=== PATIENT | male | born 1940 | race Caucasian/White ===

== ENCOUNTER → 2018-02-06 07:59 | Outpatient (CLI) | payer MEDICARE, SELFPAY ==
[2018-02-06 09:23] LABS: Prostate Specific Antigen 0.486 ng/mL (0.10-4.00)
== END ==
PROVIDERS: Visit Provider Radiology Radiation Oncology
DX: C61 Malignant neoplasm of prostate (principal)
CPT/HCPCS: 36415; 84153

== ENCOUNTER → 2018-03-23 14:13 | Outpatient (CLI) | payer MEDICARE, SELFPAY ==
[2018-03-23 15:04] LABS: Add Manual Diff / Slide Review NO; Basophils Percent Auto 0.4 % (0-2); Eosinophils Percent Auto 0.6 % (2-4); Hematocrit 46.3 % (41-53); Hemoglobin 15.9 g/dL (13.5-17.5); Lymphocytes Percent Auto 13.3 % (25-40); Mean Corpuscular HGB Conc 34.3 % (30-36); Mean Corpuscular Volume 90.2 fL (80-100); Monocytes Percent Auto 7.5 % (3-14); Neutrophils Absolute Auto 9600 /uL (3000-5900); Neutrophils Percent Auto 78.2 % (50-75); Platelet Count 275 X10^3/uL (150-400); Red Blood Cell Count 5.14 X10^6/uL (4.5-5.9); Red Cell Distribution Width 13.8 % (11.6-14.8); White Blood Cell Count 12.2 X10^3/uL (4.5-11.0)
[2018-03-23 15:25] LABS: Alanine Aminotransferase 23 IU/L (21-72); Albumin 4.4 g/dL (3.5-5.0); Albumin Globulin Ratio 1.5 (1.0-2.8); Alkaline Phosphatase 62 U/L (38-126); Aspartate Aminotransferase 24 IU/L (17-59); BUN Creatinine Ratio 21.3 (6-22); Bilirubin Total 0.8 mg/dL (0.2-1.3); Blood Urea Nitrogen 17 mg/dL (9-20); Calcium 9.2 mg/dL (8.4-10.2); Carbon Dioxide 28 mmol/L (22-32); Chloride 103 mmol/L (98-107); Estimated Glomerular Filt Rate > 60.0 mL/min (>60); Glucose 124 mg/dL (80-110); HEMOLYSIS < 15 (0-50); Magnesium 2.2 mg/dL (1.6-2.3); Potassium 4.1 mmol/L (3.4-5.1); Sodium 141 mmol/L (137-145); Total Protein 7.4 g/dL (6.3-8.2)
[2018-03-23 16:16] LABS: Thyroid Stimulating Hormone 1.89 uIU/mL (0.47-4.68)
== END ==
PROVIDERS: Visit Provider Nurse Practitioner Family
DX: I48.91 Unspecified atrial fibrillation (principal); I44.30 Unspecified atrioventricular block; I10 Essential (primary) hypertension
CPT/HCPCS: 36415; 80053; 83735; 84443; 85025

== ENCOUNTER → 2018-05-18 07:36 | Outpatient (CLI) | payer MEDICARE, SELFPAY ==
[2018-05-18 08:18] LABS: Appearance Urine UA CLEAR; Bilirubin Urine UA NEGATIVE (NEGATIVE); Color Urine UA YELLOW; Glucose Urine UA NEGATIVE (Normal); Ketones Urine UA NEGATIVE (NEGATIVE); Leukocyte Esterase Urine UA NEGATIVE (NEGATIVE); Nitrite Urine UA Negative (Negative); Occult Blood Urine UA NEGATIVE (Negative); Protein Urine UA NEGATIVE (Negative); Urobilinogen Urine UA 0.2 E.U./dL (0.2); pH Urine UA 7.5 (4.5-8.0)
[2018-05-18 08:24] LABS: Add Manual Diff / Slide Review NO; Basophils Percent Auto 0.2 % (0-2); Eosinophils Percent Auto 0.9 % (2-4); Hematocrit 46.8 % (41-53); Hemoglobin 15.9 g/dL (13.5-17.5); Lymphocytes Percent Auto 11.6 % (25-40); Mean Corpuscular HGB Conc 33.9 % (30-36); Mean Corpuscular Hemoglobin 30.9 PG (26-34); Mean Corpuscular Volume 91.2 fL (80-100); Monocytes Percent Auto 8.2 % (3-14); Neutrophils Absolute Auto 8100 /uL (3000-5900); Neutrophils Percent Auto 79.1 % (50-75); Platelet Count 266 X10^3/uL (150-400); Red Blood Cell Count 5.14 X10^6/uL (4.5-5.9); Red Cell Distribution Width 13.4 % (11.6-14.8); White Blood Cell Count 10.2 X10^3/uL (4.5-11.0)
[2018-05-18 09:10] LABS: Hemoglobin A1C% w Est Avg Glu 6.4 % (4.0-6.0)
[2018-05-18 09:25] LABS: Alanine Aminotransferase 23 IU/L (21-72); Albumin 4.4 g/dL (3.5-5.0); Albumin Globulin Ratio 1.4 (1.0-2.8); Alkaline Phosphatase 64 U/L (38-126); Aspartate Aminotransferase 23 IU/L (17-59); BUN Creatinine Ratio 28.6 (6-22); Bilirubin Total 0.7 mg/dL (0.2-1.3); Blood Urea Nitrogen 20 mg/dL (9-20); Calcium 8.9 mg/dL (8.4-10.2); Carbon Dioxide 28 mmol/L (22-32); Chloride 105 mmol/L (98-107); Cholesterol 176 mg/dL (140-199); Estimated Glomerular Filt Rate > 60.0 mL/min (>60); Globulin 3.1 g/dL (1.7-4.1); Glucose 126 mg/dL (80-110); HDL Cholesterol 40 mg/dL (40-60); HEMOLYSIS < 15 (0-50); LDL Cholesterol Calculated 118 mg/dL (<100); Potassium 3.8 mmol/L (3.4-5.1); Sodium 144 mmol/L (137-145); Total Protein 7.5 g/dL (6.3-8.2); Triglycerides 90 mg/dL (35-150)
[2018-05-18 09:56] LABS: Thyroid Stimulating Hormone 2.03 uIU/mL (0.47-4.68)
== END ==
PROVIDERS: Visit Provider Family Medicine
DX: R73.9 Hyperglycemia, unspecified (principal); Z51.81 Encounter for therapeutic drug level monitoring; Z95.0 Presence of cardiac pacemaker
CPT/HCPCS: 36415; 80053; 80061; 81003; 83036; 84443; 85025

== ENCOUNTER → 2018-07-23 14:11 | Outpatient (CLI) | payer MEDICARE, SELFPAY ==
[2018-07-23 16:35] LABS: Prostate Specific Antigen 0.395 ng/mL (0.10-4.00)
[2018-07-23 19:32] LABS: Alanine Aminotransferase 21 IU/L (21-72); Albumin 4.5 g/dL (3.5-5.0); Albumin Globulin Ratio 1.5 (1.0-2.8); Alkaline Phosphatase 62 U/L (38-126); Aspartate Aminotransferase 27 IU/L (17-59); BUN Creatinine Ratio 18.8 (6-22); Bilirubin Total 0.6 mg/dL (0.2-1.3); Blood Urea Nitrogen 15 mg/dL (9-20); Calcium 9.2 mg/dL (8.4-10.2); Carbon Dioxide 21 mmol/L (22-32); Chloride 106 mmol/L (98-107); Estimated Glomerular Filt Rate > 60.0 mL/min (>60); Glucose 184 mg/dL (80-110); HEMOLYSIS 29 (0-50); Potassium 4.3 mmol/L (3.4-5.1); Sodium 141 mmol/L (137-145); Total Protein 7.5 g/dL (6.3-8.2)
== END ==
PROVIDERS: Family Provider Family Medicine; Visit Provider Radiology Radiation Oncology
DX: Z85.46 Personal history of malignant neoplasm of prostate (principal); Z51.81 Encounter for therapeutic drug level monitoring
CPT/HCPCS: 36415; 80053; 84153

== ENCOUNTER → 2018-08-03 08:10 | Outpatient (CLI) | payer MEDICARE, SELFPAY ==
[2018-08-03 09:11] LABS: Hemoglobin A1C% w Est Avg Glu 6.6 % (4.0-6.0)
== END ==
PROVIDERS: Visit Provider Family Medicine
DX: R73.09 Other abnormal glucose (principal)
CPT/HCPCS: 36415; 83036

== ENCOUNTER → 2018-09-24 12:24 | Outpatient (CLI) | payer MEDICARE, SELFPAY ==
[2018-09-24 13:43] LABS: Alanine Aminotransferase 29 IU/L (21-72); Albumin 4.3 g/dL (3.5-5.0); Albumin Globulin Ratio 1.5 (1.0-2.8); Alkaline Phosphatase 63 U/L (38-126); Aspartate Aminotransferase 24 IU/L (17-59); BUN Creatinine Ratio 31.7 (6-22); Bilirubin Total 0.6 mg/dL (0.2-1.3); Bilirubin Unconjugated 0.3 mg/dL (0.0-1.1); Blood Urea Nitrogen 19 mg/dL (9-20); Carbon Dioxide 26 mmol/L (22-32); Chloride 101 mmol/L (98-107); Estimated Glomerular Filt Rate > 60.0 mL/min (>60); Globulin 2.8 g/dL (1.7-4.1); Glucose 103 mg/dL (80-110); HEMOLYSIS 20 (0-50); Magnesium 2.2 mg/dL (1.6-2.3); Potassium 4.2 mmol/L (3.4-5.1); Sodium 138 mmol/L (137-145); Total Protein 7.1 g/dL (6.3-8.2)
== END ==
PROVIDERS: Family Provider Family Medicine; Visit Provider Nurse Practitioner Family
DX: I48.0 Paroxysmal atrial fibrillation (principal)
CPT/HCPCS: 36415; 80048; 80076; 83735

== ENCOUNTER → 2018-12-14 08:06 | Outpatient (CLI) | payer MEDICARE, SELFPAY ==
[2018-12-14 09:54] LABS: Prostate Specific Antigen 0.388 ng/mL (0.10-4.00)
== END ==
PROVIDERS: Family Provider Family Medicine; Visit Provider Radiology Radiation Oncology
DX: C61 Malignant neoplasm of prostate (principal)
CPT/HCPCS: 36415; 84153

== ENCOUNTER → 2019-04-25 07:57 | Outpatient (CLI) | payer MEDICARE, SELFPAY ==
[2019-04-25 08:48] LABS: Blood Urea Nitrogen 21 mg/dL (9-20); Calcium 9.4 mg/dL (8.4-10.2); Carbon Dioxide 24 mmol/L (22-32); Chloride 105 mmol/L (98-107); Estimated Glomerular Filt Rate > 60.0 mL/min (>60); Glucose 104 mg/dL (80-110); HEMOLYSIS < 15 (0-50); Potassium 4.1 mmol/L (3.4-5.1); Sodium 141 mmol/L (137-145)
== END ==
PROVIDERS: Visit Provider Nurse Practitioner Family
DX: I48.0 Paroxysmal atrial fibrillation (principal)
CPT/HCPCS: 36415; 80048

== ENCOUNTER → 2019-07-15 08:00 | Outpatient (CLI) | payer MEDICARE, SELFPAY ==
[2019-07-15 10:10] LABS: Prostate Specific Antigen 0.461 ng/mL (0.10-4.00)
== END ==
PROVIDERS: PCP Family Medicine; Visit Provider Radiology Radiation Oncology
DX: C61 Malignant neoplasm of prostate (principal)
CPT/HCPCS: 36415; 84153

== ENCOUNTER → 2019-12-26 07:49 | Outpatient (CLI) | payer MEDICARE, SELFPAY ==
[2019-12-26 09:13] LABS: BUN Creatinine Ratio 22.1 (6-22); Blood Urea Nitrogen 17 mg/dL (9-20); Calcium 9.1 mg/dL (8.4-10.2); Carbon Dioxide 26 mmol/L (22-32); Chloride 106 mmol/L (98-107); Estimated Glomerular Filt Rate > 60.0 mL/min (>60); Glucose 204 mg/dL (80-110); HEMOLYSIS < 15 (0-50); Magnesium 2.1 mg/dL (1.6-2.3); Potassium 4.2 mmol/L (3.4-5.1); Sodium 140 mmol/L (137-145)
== END ==
PROVIDERS: Referring Provider Nurse Practitioner Acute Care; Visit Provider Nurse Practitioner Acute Care
DX: Z51.81 Encounter for therapeutic drug level monitoring (principal); Z79.899 Other long term (current) drug therapy
CPT/HCPCS: 36415; 80048; 83735

== ENCOUNTER 2019-12-30 04:53 | Emergency (ER) | payer MEDICARE, SELFPAY ==
[2019-12-30 05:03] VITALS: BP 221/108; PULSE 76; RESP 18; TEMP 36.7; O2SAT 98; BMI 29.7
--- NOTE | 2019-12-30 05:15 | ED.GENADULT ---
HPI - General Adult General Chief complaint: Urogenital-Male Stated complaint: trouble urinating/history prostate cancer Time Seen by Provider: 12/30/19 05:15 Source: patient Mode of arrival: Ambulatory Limitations: no limitations History of Present Illness HPI narrative: 79-year-old gentleman with the history significant for prostate cancer status post radiation and Lupron with no evidence of recurrence, hypertension, hyperglycemia and atrial fibrillation on apixaban and post pacemaker presents with acute urinary retention. He notes for the last 24 hours he has had more and more difficulty in voiding and this evening he has been almost 5 hours trying to void. He is noticing pressure in his suprapubic area and a burning sensation at the tip of his penis. No discharge. Has not had previous issues with acute urinary retention. He describes no fevers, chills, myalgias, hematuria, flank pain, chest pain, dyspnea, orthopnea, lower extremity edema. Related Data Home Medications Medication Instructions Recorded Confirmed amlodipine 5 mg tablet 5 mg PO DAILY 05/15/18 05/15/18 apixaban 5 mg tablet 5 mg PO BID 05/15/18 05/15/18 lisinopril 20 mg tablet 20 mg PO DAILY 05/15/18 05/15/18 metoprolol tartrate 50 mg tablet 25 mg PO BID 05/15/18 05/15/18 omega-3 fatty acids 1,000 mg 1,000 mg PO DAILY 05/15/18 05/15/18 capsule sotalol 80 mg tablet 40 mg PO Q12H tab 05/15/18 05/15/18 Previous Rx's Medication Instructions Recorded adjuvant AS01B (PF)vial 1 of 2 0.5 ml IM ONCE #0.5 ml 05/15/18 diph,pertuss(acel),tet vac(PF) 0.5 ml IM ONCE #0.5 ml 05/15/18 pneumoc 13-divina conj-dip cr(PF) 0.5 0.5 ml IM ONCE #0.5 ml 05/15/18 mL IM syringe tamsulosin 0.4 mg PO DAILY #30 cap 12/30/19 Allergies Allergy/AdvReac Type Severity Reaction Status Date / Time No Known Drug Allergies Allergy Verified 05/15/18 09:51 Review of Systems Review of Systems Narrative: Pertinent positive and negative findings as per HPI Remainder of review of systems is otherwise unremarkable for Constitutional: Fevers, chills, weakness ENT: No sore throat, neck pain, ear pain Respiratory: Cough, wheeze, dyspnea GI: Nausea, vomiting, diarrhea, change in bowel habits, black or bloody stools MS: Muscle weakness, numbness, Skin: Rashes, Neuro: Syncope, dizziness, tingling Psych: Depression, anxiety, suicidal ideation Patient History Medical History Atrial fibrillation (Chronic) Cataract (Chronic 2016) Elevated PSA (Chronic ~2007) High-grade atrioventricular block (Resolved 02/15/17) Hypertension (Chronic) Pacemaker (Chronic 02/15/17) Prostate cancer (Chronic 2013) Surgical History Anesthesia (Resolved) History of permanent cardiac pacemaker placement (Resolved 02/15/17) Family History Father Cancer Brain tumor Mother No problems noted. Sister Dementia Social History (Updated 12/30/19 @ 05:46 by Rissa Angel MD) marital status: number of children: 6 lives independently: Yes education level: other Previous occupational history: Dentist Smoking Status: Never smoker alcohol intake: never Smoking Status: Never smoker alcohol intake frequency: 0-2 drinks per day Substance Use Type: does not use Exam Narrative Exam Narrative: General: Healthy appearing, in mild distress. Able to give a complete and coherent history. Well-nourished well-developed HEENT: Moist mucous membranes, normal sclera with reactive pupils, Neck: No JVD, supple Respiratory: Lungs are clear to auscultation, no wheezing no rales no rhonchi. Full and symmetrical air movement Cardiac: Regular rate and rhythm no murmurs no bruits Abdomen: Soft, umbilical hernia, mild supra pubic tenderness, good bowel tones, no flank pain Skin: Warm and dry, no rashes Neurologic: Grossly neurologically intact with no obvious asymmetries or abnormalities Extremities: No trauma, well perfused Psych: Cooperative, appropriate insight and affect Genitals: Normal uncircumcised penis, no penile discharge or urethral strictures. Bedside ultrasound suggests over 500 cc in the bladder Brock catheter placed by a nursing staff without difficulty. Draining nicely with yellow, nonbloody not purulence urine. Significant relief from pain once Brock has been placed Initial Vital Signs Initial Vital Signs: Vital Signs Temperature 98.0 F 12/30/19 05:03 Pulse Rate 76 12/30/19 05:03 Respiratory Rate 18 12/30/19 05:03 Blood Pressure 221/108 H 12/30/19 05:03 Pulse Oximetry 98 12/30/19 05:03 Course Orders Ordered: ED Orders 12/30/19 05:30 Urine Microscopic Stat Discontinued Medications Lidocaine HCl (Urojet) 5 ml TOP NOW ONE Stop: 12/30/19 05:08 Last Admin: 12/30/19 05:44 Dose: 5 ml Documented by: Tamsulosin HCl (Flomax) 0.4 mg PO NOW ONE Stop: 12/30/19 05:35 Last Admin: 12/30/19 05:45 Dose: 0.4 mg Documented by: Vital Signs Vital signs: Vital Signs - 8 hr 12/30/19 05:03 12/30/19 05:43 Temperature 98.0 F Pulse Rate 76 Respiratory Rate 18 Blood Pressure 221/108 H Blood Pressure [Right Arm] 150/80 H Pulse Oximetry 98 Medical Decision Making Lab Data Labs: Urine Dip Bedside Urine Glucose Negative Bedside Urine Bilirubin - Negative Bedside Urine Ketone - Negative Urine Specific [place] 1.030 Bedside Urine Occult Blood +++ Bedside Urine pH 5.5 Bedside Urine Protein +/- 15 Bedside Urine Urobilinogen - Negative Bedside Urine Nitrite - Negative Bedside Urine Leukocytes - Negative Esterase Point of care testing: Urine Dip Bedside Urine Glucose Negative Bedside Urine Bilirubin - Negative Bedside Urine Ketone - Negative Urine Specific [place] 1.030 Bedside Urine Occult Blood +++ Bedside Urine pH 5.5 Bedside Urine Protein +/- 15 Bedside Urine Urobilinogen - Negative Bedside Urine Nitrite - Negative Bedside Urine Leukocytes - Negative Esterase MDM Narrative Medical decision making narrative: 79-year-old gentleman with acute urinary retention. Doing much better with Brock catheter in place. He has not had a prostatectomy but has had both Lupron and radiation treatment for his prior prostate cancer with most recent PSA at 0.6. Will be discharged home with Brock in place and leg bag instructions. He does not have a current urologist. Will refer him to and asked him to contact the urologist's office on Monday to schedule a ER follow-up appointment later this week to have the Brock catheter removed and a trial of spontaneous voiding. Will start him on Flomax. Urine dip shows only blood and protein no evidence for UTI. Discharge Plan Departure Patient Disposition: Home Clinical Impression: Acute urinary retention Instructions: How to Care for Your Brock Catheter -- Male, DI for Urinary Retention in Men Activity Restrictions/Additional Instructions: Thank you for coming in today. You did have a significant amount of urine in your bladder and acute urinary retention. We have placed a Brock catheter and started you on Flomax to improve urine flow. A prescription has been electronically sent to [facility] in and [place] free to pickler helper later today. A urine dip in the emergency department does not suggest a bladder infection. You will need to follow-up with Dr. Whatley, urologist, later this week to have the catheter removed and a trial of spontaneous voiding. If you are interested in help finding a primary care physician in [place] you can always use the Health human service coordinator line, Prescriptions: New tamsulosin 0.4 mg capsule 0.4 mg PO DAILY Qty: 30 RF: 0 No Action omega-3 fatty acids [Fish Oil Concentrate] 1,000 mg capsule 1,000 mg PO DAILY RF: 0 sotalol 80 mg tablet 40 mg PO Q12H RF: 0 lisinopril 20 mg tablet 20 mg PO DAILY RF: 0 amlodipine 5 mg tablet 5 mg PO DAILY RF: 0 metoprolol tartrate 50 mg tablet 25 mg PO BID RF: 0 apixaban [Eliquis] 5 mg tablet 5 mg PO BID RF: 0 diph,pertuss(acel),tet vac(PF) [Adacel(Tdap Adolesn/Adult)(PF)] 2 Lf-(2.5-5-3-5 mcg)-5Lf/0.5 mL suspension 0.5 ml IM ONCE Qty: 0.5 RF: 0 pneumoc 13-divina conj-dip cr(PF) [Prevnar 13 (PF)] 0.5 mL syringe 0.5 ml IM ONCE Qty: 0.5 RF: 0 adjuvant AS01B (PF)vial 1 of 2 [Shingrix Adjuvant Component-PF] suspension 0.5 ml IM ONCE Qty: 0.5 RF: 0 Referrals: Nader Benedict MD [Physician] -
[2019-12-30 05:43] VITALS: BP 150/80
[2019-12-30 05:43] LABS: Bacteria Urine None Seen; WBC Urine None Seen (0-5/HPF)
[2019-12-30] MEDS: LIDOCAINE 2% (UROJET) 5 ML GEL TOP (05:44)
[2019-12-30] MEDS: TAMSULOSIN 0.4 MG CAPSULE PO (05:45)
[2019-12-30 05:56] LABS: Culture Indicated Urine Cult Not Indicated; RBC Urine 5-10/HPF (0-5/HPF)
--- NOTE | 2019-12-30 06:38 | PC.NURSE ---
0555 Brock bag changed to leg bag and pt instructed in its use with adequate return demonstration.
== END 2019-12-30 06:08 | disposition home or self-care (01) ==
PROVIDERS: Emergency Provider Emergency Medicine
DX: R33.9 Retention of urine, unspecified (principal); Z85.46 Personal history of malignant neoplasm of prostate
CPT/HCPCS: 51701; 81003; 81015; 99283; 99284

== ENCOUNTER 2020-01-04 13:01 | Emergency (ER) | payer MEDICARE, SELFPAY ==
[2020-01-04 13:11] VITALS: BP 163/90; PULSE 79; RESP 16; TEMP 36.7; O2SAT 97; BMI 29.7
[2020-01-04] MEDS: LIDOCAINE 2% (UROJET) 5 ML GEL TOP (13:28)
--- NOTE | 2020-01-04 13:35 | ED_ITS ---
HPI - Male Genitourinary <SHAQUILLE Dave - Last Filed: 01/04/20 14:48> General Chief complaint: Urogenital-Male Stated complaint: catheter rem on monday/ unable to urinate Time Seen by Provider: 01/04/20 13:09 Source: patient Mode of arrival: Ambulatory Limitations: no limitations History of Present Illness HPI Narrative: The patient is an 79-year-old male never smoker with history of prostate cancer post radiation and Lupron, hypertension, hyperglycemia in atrial fibrillation on apixaban post pacemaker who presents with a chief complaint of urinary retention. He states he was seen on 12/29 of this month for the same thing, had his Brock catheter removed yesterday and has not been able to fully urinate since. He states that 1 of his neighbors is an cost recovery technician, used to home ultrasound defined 600 cc in his bladder. He denies any fevers, chills, hematuria flank pain chest pain shortness of breath nausea vomiting diarrhea. Related Data Home Medications Medication Instructions Recorded Confirmed amlodipine 5 mg tablet 5 mg PO DAILY 05/15/18 05/15/18 apixaban 5 mg tablet 5 mg PO BID 05/15/18 05/15/18 lisinopril 20 mg tablet 20 mg PO DAILY 05/15/18 05/15/18 metoprolol tartrate 50 mg tablet 25 mg PO BID 05/15/18 05/15/18 omega-3 fatty acids 1,000 mg 1,000 mg PO DAILY 05/15/18 05/15/18 capsule sotalol 80 mg tablet 40 mg PO Q12H tab 05/15/18 05/15/18 Previous Rx's Medication Instructions Recorded adjuvant AS01B (PF)vial 1 of 2 0.5 ml IM ONCE #0.5 ml 05/15/18 diph,pertuss(acel),tet vac(PF) 0.5 ml IM ONCE #0.5 ml 05/15/18 pneumoc 13-divina conj-dip cr(PF) 0.5 0.5 ml IM ONCE #0.5 ml 05/15/18 mL IM syringe tamsulosin 0.4 mg PO DAILY #30 cap 12/30/19 Allergies Allergy/AdvReac Type Severity Reaction Status Date / Time No Known Drug Allergies Allergy Verified 01/04/20 13:10 Review of Systems <SHAQUILLE Dave - Last Filed: 01/04/20 14:48> Review of Systems Narrative: GENERAL: Denies chills, fatigue, malaise, fever, sweats. HEENT: Denies sinus pain, ear pain, sore throat, difficulty swallowing, dizziness. RESPIRATORY: Denies dyspnea, cough, wheezing, hemoptysis, sputum. CARDIOVASCULAR: Denies chest pain, palpitations, orthopnea, edema, GASTROINTESTINAL: Denies nausea, vomiting, abdominal pain, diarrhea, constipation, melena. : See HPI MUSCULOSKELETAL: denies weakness, joint pain, or bony pain SKIN: Denies rash, skin lesions, or other NEUROLOGIC: Denies weakness, headache, numbness, change in speech, confusion, seizures, incoordination. PSYCHIATRIC: No concerning psychosocial issues. 12 point review of systems is negative except for those stated above Patient History <Sylwia Roberson [facility] - Last Filed: 01/04/20 14:48> Social History (Updated 12/30/19 @ 05:46 by Rissa Angel MD) marital status: number of children: 6 lives independently: Yes education level: other Previous occupational history: Dentist Smoking Status: Never smoker alcohol intake: never Smoking Status: Never smoker alcohol intake frequency: 0-2 drinks per day Substance Use Type: does not use Exam <Sylwia Roberson [facility] - Last Filed: 01/04/20 14:48> Narrative Exam Narrative: GENERAL: This is a well-nourished, well-developed patient, no acute distress HEAD: Atraumatic. Normocephalic. No temporal or scalp tenderness. EYES: Pupils equal round and reactive. Extraocular motions intact. No scleral icterus. No injection or drainage. ENT: Nose without bleeding, purulent drainage or septal hematoma. Throat without erythema, tonsillar hypertrophy or exudate. Uvula midline. Airway patent. NECK: Trachea midline. No JVD or lymphadenopathy. Supple, nontender, no meningeal signs. CARDIOVASCULAR: Regular rate and rhythm RESPIRATORY: Clear to auscultation. Breath sounds equal bilaterally. No wheezes, rales, or rhonchi. No cough. No increased respiratory. No accessory muscle use for GASTROINTESTINAL: Abdomen soft, non-tender, nondistended. No hepato- splenomegaly, or palpable masses. No guarding. Brock catheter in place draining clear yellow urine EXTREMITIES: No clubbing, cyanosis, or edema. No joint tenderness, effusion, or edema noted. BACK: Nontender without deformity or crepitance. No flank tenderness. NEURO: AOx3. SKIN: No rash or erythema on visible skin Initial Vital Signs Initial Vital Signs: Vital Signs Temperature 98.0 F 01/04/20 13:11 Pulse Rate 79 01/04/20 13:11 Respiratory Rate 16 01/04/20 13:11 Blood Pressure 163/90 H 01/04/20 13:11 Pulse Oximetry 97 01/04/20 13:11 <Yobani Pineda DO - Last Filed: 01/04/20 16:50> Initial Vital Signs Initial Vital Signs: Vital Signs Temperature 98.0 F 01/04/20 13:11 Pulse Rate 79 01/04/20 13:11 Respiratory Rate 16 01/04/20 13:11 Blood Pressure 163/90 H 01/04/20 13:11 Pulse Oximetry 97 01/04/20 13:11 Scores <SHAQUILLE Dave - Last Filed: 01/04/20 14:48> GCS Pieter coma scale eye opening: Spontaneous [place] coma scale verbal response: Orientated Pieter coma scale motor response: Obey commands [place] coma scale total score: 15 Course <SHAQUILLE Dave - Last Filed: 01/04/20 14:48> Orders Ordered: ED Orders 01/04/20 13:27 Urinalysis and Microscopic Stat Discontinued Medications Lidocaine HCl (Urojet) 5 ml TOP NOW ONE Stop: 01/04/20 13:16 Last Admin: 01/04/20 13:28 Dose: 5 ml Documented by: KARLA Vital Signs Vital signs: Vital Signs - 8 hr 01/04/20 13:11 01/04/20 14:37 Temperature 98.0 F Pulse Rate 79 60 Respiratory Rate 16 16 Blood Pressure 163/90 H Blood Pressure [Right Arm] 125/65 Pulse Oximetry 97 98 <Yboani Pineda DO - Last Filed: 01/04/20 16:50> Orders Ordered: ED Orders 01/04/20 13:27 Urinalysis and Microscopic Stat Discontinued Medications Lidocaine HCl (Urojet) 5 ml TOP NOW ONE Stop: 01/04/20 13:16 Last Admin: 05/30/20 13:28 Dose: 5 ml Documented by: KARLA Vital Signs Vital signs: Vital Signs - 8 hr 01/04/20 13:11 01/04/20 14:37 Temperature 98.0 F Pulse Rate 79 60 Respiratory Rate 16 16 Blood Pressure 163/90 H Blood Pressure [Right Arm] 125/65 Pulse Oximetry 97 98 MDM - Male Genitourinary <SATNAM Dave-BC - Last Filed: 01/04/20 14:48> Differential Diagnosis Differential diagnosis: Likely urinary tract infection, acute retention of urine and other (Urinary retention) Lab Data Labs: Lab Results 01/04/20 Range/Units 13:27 Urine Color Yellow Urine Appearance Clear Urine pH 6.0 (4.5-8.0) Ur Specific [place] 1.020 (1.000-1.035) Urine Protein Negative (Negative) Urine Glucose (UA) Negative (Negative) g/dL Urine Ketones Negative (NEGATIVE) Urine Occult Blood Trace-intact (Negative) Urine Nitrate Negative (Negative) Urine Bilirubin Negative (NEGATIVE) Urine Urobilinogen 0.2 (0.2) E.U./dL Ur Leukocyte Esterase Negative (NEGATIVE) Urine RBC 1-5/hpf (0-5/HPF) Urine WBC None seen (0-5/HPF) Urine Bacteria None seen (None) Ur Culture Indicated? Cult not indicated MDM Narrative Medical decision making narrative: The patient is an 79-year-old male who presents with a chief complaint of inability urinate after his Brock catheter was removed. He is bladder scanned for several 100 cc of urine, by nursing any Brock catheter was placed. He felt improvement. He immediately drained several 100 cc of clear yellow urine. No signs of infection on urinalysis. Patient states he plans on following up with his urologist, who was aware of his visit today. Patient states he is comfortable managing Brock catheter home. Discussed coming back to the emergency department for any acute concerns such as fever, not passing urine etcetera. Patient has no questions or concerns upon discharge and states understanding of return precautions as well as follow-up care. <Yobani Pineda DO - Last Filed: 01/04/20 16:50> Lab Data Labs: Lab Results 01/04/20 Range/Units 13:27 Urine Color Yellow Urine Appearance Clear Urine pH 6.0 (4.5-8.0) Ur Specific [place] 1.020 (1.000-1.035) Urine Protein Negative (Negative) Urine Glucose (UA) Negative (Negative) g/dL Urine Ketones Negative (NEGATIVE) Urine Occult Blood Trace-intact (Negative) Urine Nitrate Negative (Negative) Urine Bilirubin Negative (NEGATIVE) Urine Urobilinogen 0.2 (0.2) E.U./dL Ur Leukocyte Esterase Negative (NEGATIVE) Urine RBC 1-5/hpf (0-5/HPF) Urine WBC None seen (0-5/HPF) Urine Bacteria None seen (None) Ur Culture Indicated? Cult not indicated Discharge Plan Departure Patient Disposition: Home Clinical Impression: Acute urinary retention Discharge Date/Time: 01/04/20 14:53 Instructions: How to Care for Your Brock Catheter -- Male, DI for Urinary Retention in Men Activity Restrictions/Additional Instructions: Thank you for trusting us with your care today. Today we placed a Brock catheter back into your bladder to help drain the urine. The urine shows no signs of infection. As I discussed, please follow-up with your urologist, Dr Benedict Please come back to the emergency department for acute concerns Prescriptions: No Action omega-3 fatty acids [Fish Oil Concentrate] 1,000 mg capsule 1,000 mg PO DAILY RF: 0 sotalol 80 mg tablet 40 mg PO Q12H RF: 0 lisinopril 20 mg tablet 20 mg PO DAILY RF: 0 amlodipine 5 mg tablet 5 mg PO DAILY RF: 0 metoprolol tartrate 50 mg tablet 25 mg PO BID RF: 0 apixaban [Eliquis] 5 mg tablet 5 mg PO BID RF: 0 diph,pertuss(acel),tet vac(PF) [Adacel(Tdap Adolesn/Adult)(PF)] 2 Lf-(2.5-5-3-5 mcg)-5Lf/0.5 mL suspension 0.5 ml IM ONCE Qty: 0.5 RF: 0 pneumoc 13-divina conj-dip cr(PF) [Prevnar 13 (PF)] 0.5 mL syringe 0.5 ml IM ONCE Qty: 0.5 RF: 0 adjuvant AS01B (PF)vial 1 of 2 [Shingrix Adjuvant Component-PF] suspension 0.5 ml IM ONCE Qty: 0.5 RF: 0 tamsulosin 0.4 mg capsule 0.4 mg PO DAILY Qty: 30 RF: 0 Referrals: Nader Benedict MD [Physician] - <Yobani Pineda DO - Last Filed: 01/04/20 16:50> Cosign ED Attending Cosignature Attestation: I was immediately available in the department for consultation. This documentation has been reviewed and I agree with assessment and plan. Supervised by Yobani Pineda DO
[2020-01-04 13:46] LABS: Bacteria Urine None Seen; WBC Urine None Seen (0-5/HPF)
[2020-01-04 13:55] LABS: Appearance Urine UA CLEAR; Bilirubin Urine UA NEGATIVE (NEGATIVE); Color Urine UA YELLOW; Glucose Urine UA NEGATIVE (Negative); Ketones Urine UA NEGATIVE (NEGATIVE); Leukocyte Esterase Urine UA NEGATIVE (NEGATIVE); Nitrite Urine UA NEGATIVE (Negative); Occult Blood Urine UA TRACE-INTACT (Negative); Protein Urine UA NEGATIVE (Negative); Urobilinogen Urine UA 0.2 E.U./dL (0.2)
[2020-01-04 14:09] LABS: RBC Urine 1-5/HPF (0-5/HPF)
[2020-01-04 14:10] LABS: Culture Indicated Urine Cult Not Indicated
[2020-01-04 14:37] VITALS: BP 125/65; PULSE 60; RESP 16; O2SAT 98
== END 2020-01-04 14:53 | disposition home or self-care (01) ==
PROVIDERS: Emergency Provider Nurse Practitioner Family
DX: R33.9 Retention of urine, unspecified (principal); I10 Essential (primary) hypertension; I48.91 Unspecified atrial fibrillation; Z95.0 Presence of cardiac pacemaker
CPT/HCPCS: 51701; 51798; 81001; 99284

== ENCOUNTER → 2020-05-21 07:44 | Outpatient (CLI) | payer MEDICARE, SELFPAY ==
[2020-05-21 11:15] LABS: BUN Creatinine Ratio 33.8 (6-22); Blood Urea Nitrogen 23 mg/dL (9-20); Calcium 8.7 mg/dL (8.4-10.2); Carbon Dioxide 27 mmol/L (22-32); Chloride 105 mmol/L (98-107); Estimated Glomerular Filt Rate > 60.0 mL/min (>60); Glucose 187 mg/dL (80-110); HEMOLYSIS < 15 (0-50); Potassium 3.9 mmol/L (3.4-5.1); Sodium 139 mmol/L (137-145)
[2020-05-21 21:48] LABS: Magnesium 2.1 mg/dL (1.6-2.3)
== END ==
PROVIDERS: PCP Nurse Practitioner Acute Care; Referring Provider Nurse Practitioner Acute Care; Visit Provider Nurse Practitioner Acute Care
DX: Z51.81 Encounter for therapeutic drug level monitoring (principal); Z79.899 Other long term (current) drug therapy
CPT/HCPCS: 36415; 80048; 83735

== ENCOUNTER → 2020-07-08 13:37 | Outpatient (CLI) | payer MEDICARE, SELFPAY ==
[2020-07-08 14:12] LABS: COVID19 -Nasal RAPID Negative (Negative)
== END ==
PROVIDERS: PCP Family Medicine; Visit Provider Physician Assistant
DX: R05 Cough (principal); R09.89 Other specified symptoms and signs involving the circulatory and respiratory systems
CPT/HCPCS: 87635

== ENCOUNTER → 2020-07-08 13:55 | Outpatient (CLI) | payer MEDICARE, SELFPAY ==
--- NOTE | 2020-07-08 13:58 | DI.RAD.S_ITS ---
PROCEDURE: XR CHEST 2V INDICATIONS: cough, r/o pneumonia TECHNIQUE: 2 views of the chest were acquired. COMPARISON: [facility], , CHEST 1 VIEW, 02/14/2017, 9:58. [facility], , CHEST 2 VIEW, 06/27/2007, 13:15. FINDINGS: Surgical changes and devices: Cardiac pacemaking device and dual chamber leads normal Lungs and pleura: Lungs are clear. No pleural effusions or pneumothorax. Mediastinum: Mediastinal contours are normal. Heart size is normal. Bones and chest wall: No suspicious bony abnormalities. Soft tissues appear unremarkable. IMPRESSION: Pacemaking device and leads normal, source of cough is not seen. No pneumonia found. Dictated by: Gage Mack M.D. on 07/08/2020 at 15:48 Approved by: Gage Mack M.D. on 07/08/2020 at 15:48
== END ==
PROVIDERS: PCP Family Medicine; Referring Provider Physician Assistant; Visit Provider Physician Assistant
DX: J06.9 Acute upper respiratory infection, unspecified (principal); R05 Cough; R09.89 Other specified symptoms and signs involving the circulatory and respiratory systems; Z95.0 Presence of cardiac pacemaker
CPT/HCPCS: 71046; 87635

== ENCOUNTER → 2020-07-27 08:46 | Outpatient (CLI) | payer MEDICARE, SELFPAY ==
[2020-07-27 10:52] LABS: Add Manual Diff / Slide Review NO; Basophils Absolute Auto 0 /uL (0-100); Basophils Percent Auto 0.4 % (0-2); Eosinophils Absolute Auto 100 /uL (0-450); Eosinophils Percent Auto 1.4 % (2-4); Hematocrit 46.7 % (41-53); Hemoglobin 15.5 g/dL (13.5-17.5); Lymphocytes Absolute Auto 1300 /uL (1100-4500); Lymphocytes Percent Auto 13.7 % (25-40); Mean Corpuscular HGB Conc 33.2 % (30-36); Mean Corpuscular Volume 90.2 fL (80-100); Monocytes Absolute Auto 700 /uL (0-900); Monocytes Percent Auto 7.6 % (3-14); Neutrophils Absolute Auto 7100 /uL (1500-7000); Neutrophils Percent Auto 76.9 % (50-75); Platelet Count 336 X10^3/uL (150-400); Red Blood Cell Count 5.18 X10^6/uL (4.5-5.9); Red Cell Distribution Width 13.6 % (11.6-14.8); White Blood Cell Count 9.3 X10^3/uL (4.5-11.0)
[2020-07-27 11:29] LABS: Alanine Aminotransferase 24 IU/L (<50); Albumin 4.2 g/dL (3.5-5.0); Albumin Globulin Ratio 1.4 (1.0-2.8); Alkaline Phosphatase 75 U/L (38-126); Aspartate Aminotransferase 30 IU/L (17-59); BUN Creatinine Ratio 29.2 (6-22); Bilirubin Total 0.7 mg/dL (0.2-1.3); Blood Urea Nitrogen 21 mg/dL (9-20); Calcium 9.4 mg/dL (8.4-10.2); Carbon Dioxide 32 mmol/L (22-32); Chloride 104 mmol/L (98-107); Cholesterol 208 mg/dL (140-199); Estimated Glomerular Filt Rate > 60.0 mL/min (>60); Glucose 128 mg/dL (80-110); HDL Cholesterol 43 mg/dL (40-60); HEMOLYSIS < 15 (0-50); LDL Cholesterol Calculated 141 mg/dL (<100); Potassium 4.8 mmol/L (3.4-5.1); Sodium 140 mmol/L (137-145); Total Protein 7.2 g/dL (6.3-8.2); Triglycerides 122 mg/dL (35-150)
[2020-07-27 11:49] LABS: TSH w/ Reflex to FT4 1.63 uIU/mL (0.47-4.68)
== END ==
PROVIDERS: PCP Family Medicine; Referring Provider Family Medicine; Visit Provider Family Medicine
DX: I10 Essential (primary) hypertension (principal); Z13.220 Encounter for screening for lipoid disorders; Z13.228 Encounter for screening for other metabolic disorders; Z13.29 Encounter for screening for other suspected endocrine disorder
CPT/HCPCS: 36415; 80053; 80061; 84443; 85025

== ENCOUNTER → 2021-01-22 07:55 | Outpatient (CLI) | payer MEDICARE, SELFPAY ==
[2021-01-22 09:25] LABS: BUN Creatinine Ratio 23.3 (6-22); Blood Urea Nitrogen 17 mg/dL (9-20); Calcium 9.3 mg/dL (8.4-10.2); Carbon Dioxide 25 mmol/L (22-32); Chloride 105 mmol/L (98-107); Estimated Glomerular Filt Rate > 60.0 mL/min (>60); Glucose 113 mg/dL (80-110); HEMOLYSIS < 15 (0-50); Magnesium 2.1 mg/dL (1.6-2.3); Potassium 4.2 mmol/L (3.4-5.1); Sodium 138 mmol/L (137-145)
== END ==
PROVIDERS: PCP Family Medicine; Referring Provider Nurse Practitioner Acute Care; Visit Provider Nurse Practitioner Acute Care
DX: Z51.81 Encounter for therapeutic drug level monitoring (principal); Z79.899 Other long term (current) drug therapy
CPT/HCPCS: 36415; 80048; 83735

== ENCOUNTER → 2021-05-06 08:02 | Outpatient (CLI) | payer MEDICARE, SELFPAY ==
[2021-05-06 09:36] LABS: Add Manual Diff / Slide Review NO; Basophils Absolute Auto 0 /uL (0-100); Basophils Percent Auto 0.4 % (0-2); Eosinophils Absolute Auto 200 /uL (0-450); Eosinophils Percent Auto 1.6 % (2-4); Hemoglobin 15.8 g/dL (13.5-17.5); Lymphocytes Absolute Auto 1100 /uL (1100-4500); Lymphocytes Percent Auto 11.2 % (25-40); Mean Corpuscular HGB Conc 33.7 % (30-36); Mean Corpuscular Hemoglobin 30.6 PG (26-34); Mean Corpuscular Volume 90.6 fL (80-100); Monocytes Absolute Auto 800 /uL (0-900); Monocytes Percent Auto 7.9 % (3-14); Neutrophils Absolute Auto 7700 /uL (1500-7000); Neutrophils Percent Auto 78.9 % (50-75); Platelet Count 265 X10^3/uL (150-400); Red Blood Cell Count 5.19 X10^6/uL (4.5-5.9); Red Cell Distribution Width 13.8 % (11.6-14.8); White Blood Cell Count 9.7 X10^3/uL (4.5-11.0)
[2021-05-06 10:24] LABS: Alanine Aminotransferase 14 IU/L (<50); Albumin 4.2 g/dL (3.5-5.0); Albumin Globulin Ratio 1.7 (1.0-2.8); Alkaline Phosphatase 70 U/L (38-126); Aspartate Aminotransferase 24 IU/L (17-59); BUN Creatinine Ratio 26.1 (6-22); Bilirubin Total 0.6 mg/dL (0.2-1.3); Blood Urea Nitrogen 18 mg/dL (9-20); Calcium 9.2 mg/dL (8.4-10.2); Carbon Dioxide 27 mmol/L (22-32); Chloride 106 mmol/L (98-107); Cholesterol 187 mg/dL (140-199); Estimated Glomerular Filt Rate > 60.0 mL/min (>60); Globulin 2.5 g/dL (1.7-4.1); Glucose 136 mg/dL (80-110); HDL Cholesterol 48 mg/dL (40-60); HEMOLYSIS < 15 (0-50); LDL Cholesterol Calculated 124 mg/dL (<100); Potassium 4.2 mmol/L (3.4-5.1); Sodium 140 mmol/L (137-145); Total Protein 6.7 g/dL (6.3-8.2); Triglycerides 75 mg/dL (35-150)
[2021-05-06 10:51] LABS: Prostate Specific Antigen 0.359 ng/mL (0.10-4.00); TSH w/ Reflex to FT4 1.42 uIU/mL (0.47-4.68)
== END ==
PROVIDERS: PCP Family Medicine; Referring Provider Family Medicine; Visit Provider Family Medicine
DX: E78.5 Hyperlipidemia, unspecified (principal); N40.0 Benign prostatic hyperplasia without lower urinary tract symptoms; R00.1 Bradycardia, unspecified
CPT/HCPCS: 36415; 80053; 80061; 84153; 84443; 85025

== ENCOUNTER → 2021-10-25 07:12 | Outpatient (CLI) | payer MEDICARE, SELFPAY ==
[2021-10-25 08:42] LABS: Add Manual Diff / Slide Review NO; Basophils Absolute Auto 0 /uL (0-100); Basophils Percent Auto 0.3 % (0-2); Eosinophils Absolute Auto 100 /uL (0-450); Eosinophils Percent Auto 1.5 % (2-4); Hematocrit 45.7 % (41-53); Hemoglobin 15.4 g/dL (13.5-17.5); Lymphocytes Absolute Auto 1100 /uL (1100-4500); Lymphocytes Percent Auto 12.3 % (25-40); Mean Corpuscular HGB Conc 33.8 % (30-36); Mean Corpuscular Hemoglobin 30.4 PG (26-34); Monocytes Absolute Auto 800 /uL (0-900); Monocytes Percent Auto 8.6 % (3-14); Neutrophils Absolute Auto 6900 /uL (1500-7000); Neutrophils Percent Auto 77.3 % (50-75); Platelet Count 267 X10^3/uL (150-400); Red Blood Cell Count 5.08 X10^6/uL (4.5-5.9); Red Cell Distribution Width 14.3 % (11.6-14.8); White Blood Cell Count 8.9 X10^3/uL (4.5-11.0)
[2021-10-25 08:56] LABS: Alanine Aminotransferase 15 IU/L (<50); Albumin Globulin Ratio 1.4 (1.0-2.8); Alkaline Phosphatase 59 U/L (38-126); Aspartate Aminotransferase 24 IU/L (17-59); BUN Creatinine Ratio 26.5 (6-22); Bilirubin Total 0.5 mg/dL (0.2-1.3); Blood Urea Nitrogen 18 mg/dL (9-20); Calcium 8.9 mg/dL (8.4-10.2); Carbon Dioxide 26 mmol/L (22-32); Chloride 106 mmol/L (98-107); Estimated Glomerular Filt Rate > 60.0 mL/min (>60); Globulin 2.9 g/dL (1.7-4.1); Glucose 168 mg/dL (80-110); HEMOLYSIS < 15 (0-50); Sodium 138 mmol/L (137-145); Total Protein 6.9 g/dL (6.3-8.2)
[2021-10-25 09:25] LABS: Thyroid Stimulating Hormone 2.01 uIU/mL (0.47-4.68)
== END ==
PROVIDERS: PCP Family Medicine; Referring Provider Nurse Practitioner Family; Visit Provider Nurse Practitioner Family
DX: I48.0 Paroxysmal atrial fibrillation (principal)
CPT/HCPCS: 36415; 80053; 83036; 84443; 85025

== ENCOUNTER → 2022-10-31 07:47 | Outpatient (CLI) | payer MEDICARE, SELFPAY ==
[2022-10-31 08:36] LABS: Add Manual Diff / Slide Review NO; Basophils Absolute Auto 0 /uL (0-100); Basophils Percent Auto 0.4 % (0-2); Eosinophils Absolute Auto 200 /uL (0-450); Eosinophils Percent Auto 2.8 % (2-4); Hematocrit 46.1 % (41-53); Hemoglobin 15.6 g/dL (13.5-17.5); Lymphocytes Absolute Auto 1200 /uL (1100-4500); Lymphocytes Percent Auto 13.1 % (25-40); Mean Corpuscular HGB Conc 33.8 % (30-36); Mean Corpuscular Hemoglobin 30.4 PG (26-34); Mean Corpuscular Volume 89.8 fL (80-100); Monocytes Absolute Auto 800 /uL (0-900); Monocytes Percent Auto 8.9 % (3-14); Neutrophils Absolute Auto 6600 /uL (1500-7000); Neutrophils Percent Auto 74.8 % (50-75); Platelet Count 238 X10^3/uL (150-400); Red Blood Cell Count 5.13 X10^6/uL (4.5-5.9); Red Cell Distribution Width 13.9 % (11.6-14.8); White Blood Cell Count 8.8 X10^3/uL (4.5-11.0)
[2022-10-31 10:21] LABS: Alanine Aminotransferase 19 IU/L (<50); Albumin Globulin Ratio 1.3 (1.0-2.8); Alkaline Phosphatase 75 U/L (38-126); Aspartate Aminotransferase 22 IU/L (17-59); BUN Creatinine Ratio 22.7 (6-22); Bilirubin Total 0.6 mg/dL (0.2-1.3); Blood Urea Nitrogen 15 mg/dL (9-20); Calcium 8.8 mg/dL (8.4-10.2); Carbon Dioxide 28 mmol/L (22-32); Chloride 103 mmol/L (98-107); Estimated Glomerular Filt Rate > 60 mL/min (>60); Glucose 172 mg/dL (80-110); HEMOLYSIS < 15 (0-50); Sodium 137 mmol/L (137-145)
[2022-10-31 10:47] LABS: Thyroid Stimulating Hormone 2.11 uIU/mL (0.47-4.68)
== END ==
PROVIDERS: PCP Family Medicine; Referring Provider Nurse Practitioner; Visit Provider Nurse Practitioner
DX: I48.0 Paroxysmal atrial fibrillation (principal)
CPT/HCPCS: 36415; 80053; 84443; 85025

== ENCOUNTER → 2023-12-15 07:38 | Outpatient (CLI) | payer MEDICARE, SELFPAY ==
[2023-12-15 08:42] LABS: Alanine Aminotransferase 19 IU/L (<50); Albumin 4.2 g/dL (3.5-5.0); Albumin Globulin Ratio 1.6 (1.0-2.8); Alkaline Phosphatase 77 U/L (38-126); Aspartate Aminotransferase 24 IU/L (17-59); BUN Creatinine Ratio 25.4 (6-22); Bilirubin Total 0.7 mg/dL (0.2-1.3); Blood Urea Nitrogen 15 mg/dL (9-20); Calcium 8.9 mg/dL (8.4-10.2); Carbon Dioxide 25 mmol/L (22-32); Chloride 108 mmol/L (98-107); Estimated Glomerular Filt Rate > 60 mL/min (>60); Globulin 2.7 g/dL (1.7-4.1); Glucose 185 mg/dL (80-110); HEMOLYSIS < 15 (0-50); Potassium 4.1 mmol/L (3.4-5.1); Sodium 140 mmol/L (137-145); Total Protein 6.9 g/dL (6.3-8.2)
[2023-12-15 09:09] LABS: Prostate Specific Antigen 0.471 ng/mL (0.10-4.00)
== END ==
PROVIDERS: PCP Family Medicine; Referring Provider Nurse Practitioner; Visit Provider Nurse Practitioner
DX: C61 Malignant neoplasm of prostate (principal)
CPT/HCPCS: 36415; 80053; 84153

== ENCOUNTER → 2025-01-02 07:00 | Outpatient (CLI) | payer MEDICARE, SELFPAY ==
[2025-01-02 07:35] LABS: Add Manual Diff / Slide Review NO; Basophils Absolute Auto 100 /uL (0-100); Basophils Percent Auto 0.7 % (0-2); Eosinophils Absolute Auto 200 /uL (0-450); Hematocrit 43.1 % (41-53); Hemoglobin 14.8 g/dL (13.5-17.5); Lymphocytes Absolute Auto 1300 /uL (1100-4500); Lymphocytes Percent Auto 15.2 % (25-40); Mean Corpuscular HGB Conc 34.2 % (30-36); Mean Corpuscular Hemoglobin 30.9 PG (26-34); Mean Corpuscular Volume 90.4 fL (80-100); Monocytes Absolute Auto 800 /uL (0-900); Monocytes Percent Auto 9.4 % (3-14); Neutrophils Absolute Auto 6200 /uL (1500-7000); Neutrophils Percent Auto 72.7 % (50-75); Platelet Count 235 X10^3/uL (150-400); Red Blood Cell Count 4.77 X10^6/uL (4.5-5.9); White Blood Cell Count 8.6 X10^3/uL (4.5-11.0)
[2025-01-02 07:45] LABS: Hemoglobin A1C% w Est Avg Glu 6.7 % (4.0-6.0)
[2025-01-02 08:00] LABS: Alanine Aminotransferase 20 IU/L (<50); Albumin 4.1 g/dL (3.5-5.0); Albumin Globulin Ratio 1.7 (1.0-2.8); Alkaline Phosphatase 81 U/L (38-126); Aspartate Aminotransferase 27 IU/L (17-59); BUN Creatinine Ratio 29.5 (6-22); Bilirubin Total 0.7 mg/dL (0.2-1.3); Blood Urea Nitrogen 18 mg/dL (9-20); Calcium 8.7 mg/dL (8.4-10.2); Carbon Dioxide 23 mmol/L (22-32); Chloride 106 mmol/L (98-107); Cholesterol 191 mg/dL (140-199); Estimated Glomerular Filt Rate > 60 mL/min (>60); Globulin 2.4 g/dL (1.7-4.1); Glucose 148 mg/dL (70-99); HDL Cholesterol 46 mg/dL (40-60); HEMOLYSIS < 15 (0-50); LDL Cholesterol Calculated 125 mg/dL (<100); Sodium 137 mmol/L (137-145); Total Protein 6.5 g/dL (6.3-8.2); Triglycerides 101 mg/dL (35-150)
[2025-01-02 08:12] LABS: Creatinine Urine Random 87.42 mg/dL
[2025-01-02 08:16] LABS: Microalbumin Urine Random 3.9 mg/dL (0-1.6)
[2025-01-02 08:29] LABS: TSH w/ Reflex to FT4 2.29 uIU/mL (0.47-4.68)
[2025-01-03 10:09] LABS: PSA, Total 0.5 ng/mL (0.0-4.0)
== END ==
PROVIDERS: PCP Family Medicine; Referring Provider Family Medicine; Visit Provider Family Medicine
DX: E11.9 Type 2 diabetes mellitus without complications (principal); I48.91 Unspecified atrial fibrillation; Z85.46 Personal history of malignant neoplasm of prostate; I10 Essential (primary) hypertension; E78.5 Hyperlipidemia, unspecified; R53.83 Other fatigue
CPT/HCPCS: 36415; 80053; 80061; 82043; 82570; 83036; 84153; 84154; 84443; 85025

== ENCOUNTER 2025-01-30 20:47 | Emergency (ER) | payer MEDICARE, SELFPAY ==
[2025-01-30] VITALS (8 sets, daily range): BP systolic 123–188; BP diastolic 65–87; PULSE 68–76; RESP 15–21; TEMP 36.6; O2SAT 95–98; BMI 28.3
--- NOTE | 2025-01-30 21:02 | DI.CT.S_ITS ---
PROCEDURE: CT HEAD/BRAIN WO CON INDICATIONS: head trauma age 84 TECHNIQUE: Noncontrast 4.5 mm thick angled axial sections acquired from the foramen magnum to the vertex, with coronal and sagittal reformats. For radiation dose reduction, the following was used: automated exposure control, adjustment of mA and/or kV according to patient size. COMPARISON: [facility], CT, CT CERVICAL SPINE WO CON, 01/30/2025, 21:28. FINDINGS: Image quality: Diagnostic. CSF spaces: Basal cisterns are patent. No extra-axial fluid collections. The ventricles are symmetric in size and shape. Brain: No intracranial bleeds or mass effect. There is cerebral volume loss, with resultant ventricular and sulcal prominence. There are periventricular and deep white matter chronic small vessel ischemic changes. There is intracranial internal carotid artery atherosclerosis. Skull and face: Calvarium and visualized facial bones appear intact, without suspicious lesions. Sinuses: Visualized sinuses and mastoids are clear. IMPRESSION: 1. No acute intracranial process. 2. Moderate atrophy and chronic microvascular ischemic changes. Dictated by: Rhona Teran M.D. on 01/30/2025 at 21:50 Approved by: Rhona Teran M.D. on 01/30/2025 at 21:50
--- NOTE | 2025-01-30 21:02 | DI.CT.S_ITS ---
PROCEDURE: CT CERVICAL SPINE WO CON INDICATIONS: GLF TECHNIQUE: Noncontrast 3 mm thick sections acquired from the skull base to the T4 level. Sagittal and coronal reformats were then constructed. For radiation dose reduction, the following was used: automated exposure control, adjustment of mA and/or kV according to patient size. COMPARISON: [facility], CT, CT HEAD/BRAIN WO CON, 01/30/2025, 21:28. FINDINGS: Image quality: Excellent. Bones: No fractures or dislocations. Visualized superior ribs are intact. Soft tissues: Prevertebral soft tissues are normal in thickness. No paravertebral hematomas. No apical pneumothoraces. IMPRESSION: No displaced fracture or traumatic subluxation. Dictated by: Rhona Teran M.D. on 01/30/2025 at 21:54 Approved by: Rhona Teran M.D. on 01/30/2025 at 21:55
--- NOTE | 2025-01-30 23:02 | ED.GENADULT ---
HPI - General Adult General Chief complaint: Trauma Stated complaint: Fall, Poss Head Trauma Time Seen by Provider: 01/30/25 21:02 Source: patient Mode of arrival: Wheelchair History of Present Illness HPI narrative: 84-year-old male with history of atrial fibrillation on chronic anticoagulation Eliquis, had ground level fall stepping office small step on his property outside, fell backwards, landed on the back of his head, here for further evaluation. Not aware that he had lost consciousness. No nausea or vomiting. No focal weakness to face arm or leg. No focal numbness to face arm or leg. He had no antecedent chest pain or trouble breathing that was recalled. No seizure activity or incontinence recalled. He is not sure what happened to cause him to fall but he remembers stepping down from a step, wonders if he might have tripped. He seems to not have any significant injury from the fall, denied having pain to neck, upper mid lower back, chest, abdomen, lower extremities, upper extremities. Related Data Home Medications ?Medication ?Instructions ?Recorded ?Confirmed amlodipine 5 mg tablet 5 mg PO DAILY 05/15/18 12/31/24 apixaban 5 mg tablet (Eliquis) 5 mg PO BID 05/15/18 12/31/24 lisinopril 20 mg tablet 20 mg PO DAILY 05/15/18 12/31/24 metoprolol tartrate 50 mg tablet 25 mg PO BID 05/15/18 12/31/24 omega-3 fatty acids 1,000 mg 1,000 mg PO DAILY 05/15/18 12/31/24 capsule (Fish Oil Concentrate) sotalol 80 mg tablet 80 mg PO Q12H 12/31/24 12/31/24 Previous Rx's ?Medication ?Instructions ?Recorded metformin 500 mg tablet,extended 500 mg PO DAILY #90 tabs 01/06/25 release 24 hr Allergies Allergy/AdvReac Type Severity Reaction Status Date / Time No Known Drug Allergies Allergy Verified 12/31/24 08:21 Patient History Medical History (Updated 01/30/25 @ 23:28 by Fede Flores MD) Hyperglycemia Hyperlipemia BPH (benign prostatic hyperplasia) URI (upper respiratory infection) History of urinary retention Urethral stricture Prostate cancer Bulbous urethral stricture Retention of urine 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 Sister Dementia Social History marital status: number of children: 6 lives independently: Yes education level: other Previous occupational history: Dentist Smoking Status: Never smoker alcohol intake: never Smoking Status: Never smoker alcohol intake frequency: 0-2 drinks per day Exam Narrative Exam Narrative: GENERAL: Well-developed patient, in mild distress. HEAD: Atraumatic. Normocephalic. No obvious tenderness or swelling or crepitance or abrasion occipital scalp area of reported impact of head into the soft blood on his ground level fall. EYES: Pupils equal round and reactive. Extraocular motions intact. No scleral icterus. No injection or drainage. ENT: Nose without bleeding, purulent drainage. Throat without erythema, tonsillar hypertrophy or exudate. Airway patent. NECK: Trachea midline. Non tender CARDIOVASCULAR: Regular rate and rhythm without murmurs, gallops, or rubs. RESPIRATORY: Clear to auscultation. Breath sounds equal bilaterally. No wheezes, rales, or rhonchi. GASTROINTESTINAL: Abdomen soft, non-tender, nondistended. EXTREMITIES: No edema or joint tenderness. BACK: Nontender without deformity or crepitance. No flank tenderness. NEURO: AOx3. Motor functions grossly nonfocal. SKIN: No rash or erythema of visible areas Initial Vital Signs Initial Vital Signs: Vital Signs Temperature 97.9 F 01/30/25 20:53 Pulse Rate 71 01/30/25 20:53 Respiratory Rate 18 01/30/25 20:53 Blood Pressure 188/87 H 01/30/25 20:53 Pulse Oximetry 98 01/30/25 20:53 Oxygen Delivery Method Room Air 01/30/25 20:53 Course Orders Ordered: ED Orders 01/30/25 21:02 CT cervical spine wo con Stat CT head/brain wo con Stat Vital Signs Vital signs: Vital Signs - 8 hr 01/30/25 22:00 01/30/25 22:05 01/30/25 22:05 Pulse Rate 75 69 Respiratory Rate 18 20 Blood Pressure 132/65 Pulse Oximetry 98 98 Oxygen Delivery Method 01/30/25 22:30 01/30/25 22:30 01/30/25 22:30 Pulse Rate 68 68 Respiratory Rate 15 15 Blood Pressure 123/70 Pulse Oximetry 95 95 Oxygen Delivery Method Room Air 01/30/25 23:00 01/30/25 23:00 Pulse Rate 76 Respiratory Rate 15 Blood Pressure 141/72 H Pulse Oximetry 95 Oxygen Delivery Method Room Air Medical Decision Making Imaging Data CT - cervical spine: Radiologist's Impression: [address] [address] [address] Scan Report Signed Patient: Bill Bower MR#: [id number] : 1940 Acct:[id number] Age/Sex: 84 / M Date of Service: 01/30/25 Loc: ED Accession Number: [id number] Procedure: CT cervical spine wo con Ordering Provider: Fede Flores MD PROCEDURE: CT CERVICAL SPINE WO CON INDICATIONS: GLF TECHNIQUE: Noncontrast 3 mm thick sections acquired from the skull base to the T4 level. Sagittal and coronal reformats were then constructed. For radiation dose reduction, the following was used: automated exposure control, adjustment of mA and/or kV according to patient size. COMPARISON: [facility], CT, CT HEAD/BRAIN WO CON, 01/30/2025, 21:28. FINDINGS: Image quality: Excellent. Bones: No fractures or dislocations. Visualized superior ribs are intact. Soft tissues: Prevertebral soft tissues are normal in thickness. No paravertebral hematomas. No apical pneumothoraces. IMPRESSION: No displaced fracture or traumatic subluxation. Dictated by: Rhona Teran M.D. on 01/30/2025 at 21:54 Approved by: Rhona Teran M.D. on 01/30/2025 at 21:55 CT scan - head: Radiologist's Impression: Close Cervical Spine CT (Signed) Rhona Teran - 01/30/[address] (Signed) Rhona Teran - 01/30/25 Launch?Image [address] [address] [address] Scan Report Signed Patient: Bill Bower MR#: [id number] : 1940 Acct:[id number] Age/Sex: 84 / M Date of Service: 01/30/25 Loc: ED Accession Number: [id number] Procedure: CT head/brain wo con Ordering Provider: Fede Flores MD PROCEDURE: CT HEAD/BRAIN WO CON INDICATIONS: head trauma age 84 TECHNIQUE: Noncontrast 4.5 mm thick angled axial sections acquired from the foramen magnum to the vertex, with coronal and sagittal reformats. For radiation dose reduction, the following was used: automated exposure control, adjustment of mA and/or kV according to patient size. COMPARISON: [facility], CT, CT CERVICAL SPINE WO CON, 01/30/2025, 21:28. FINDINGS: Image quality: Diagnostic. CSF spaces: Basal cisterns are patent. No extra-axial fluid collections. The ventricles are symmetric in size and shape. Brain: No intracranial bleeds or mass effect. There is cerebral volume loss, with resultant ventricular and sulcal prominence. There are periventricular and deep white matter chronic small vessel ischemic changes. There is intracranial internal carotid artery atherosclerosis. Skull and face: Calvarium and visualized facial bones appear intact, without suspicious lesions. Sinuses: Visualized sinuses and mastoids are clear. IMPRESSION: 1. No acute intracranial process. 2. Moderate atrophy and chronic microvascular ischemic changes. Dictated by: Rhona Teran M.D. on 01/30/2025 at 21:50 Approved by: Rhona Teran M.D. on 01/30/2025 at 21:50 [facility] Narrative Medical decision making narrative: 84-year-old male with history of atrial fibrillation on chronic anticoagulation, with fall stepping off one step on his property, falling backwards, impacting back of the head into the soft mud. No sharp object or hard object impact to his head. No loss of consciousness. No other injuries obvious. CT head, no acute changes. See radiology report. CT cervical spine, no acute changes. See radiology report. We discussed further workup of fall, unclear if it was syncope or mechanical, he could not recall. Offered further testing such as EKG, chest x-ray, lab work. Declined. He wants to go home. He confirmed with his , decided that he is still want to go home. Discharged home per patient request. Further workup as an outpatient for now. Discharged home with family. Return precautions discussed. Discharge Plan Departure Patient Disposition: Home Clinical Impression: Fall, Contusion of occipital region of scalp, Chronic anticoagulation Activity Restrictions/Additional Instructions: History of atrial fibrillation on chronic Eliquis anticoagulation. Fall earlier this evening about 8:30 p.m., stepping downward off a single step on outside property in the setting of brain, falling backwards, scalp impacting soft mud, no sharp or hard object. No loss of consciousness. No apparent injuries to face, back of head, neck, upper mid lower back, chest, abdomen, extremities. No preceding chest pain or palpitations or shortness of breath recalled. CT head and cervical spine imaging negative. Mud and debris cleaned, no suturable lacerations or skin changes. No tenderness seemed to be present to occipital scalp, you seemed to tolerate the fall well, it was fortunately you likely landed on soft mud patch of ground. We discussed further testing to evaluate causes a fall that might not be mechanical, this might include EKG, chest x-ray, lab testing, further telemetry monitoring. You declined for now. You would like to go home. Discharged home with family. Consider recheck with your regular doctor in follow up to see if any ambulatory further testing indicated as an outpatient. Recheck this/nearest emergency department for any change worsening symptoms or any concerns prior. Prescriptions: No Action omega-3 fatty acids [Fish Oil Concentrate] 1,000 mg capsule 1,000 mg PO DAILY lisinopril 20 mg tablet 20 mg PO DAILY amlodipine 5 mg tablet 5 mg PO DAILY metoprolol tartrate 50 mg tablet 25 mg PO BID apixaban [Eliquis] 5 mg tablet 5 mg PO BID sotalol 80 mg tablet 80 mg PO Q12H metformin 500 mg tablet extended release 24 hr 500 mg PO DAILY Qty: 90 1RF Referrals: Chloe Magaña MD [Primary Care Provider, [facility]] Stand Alone Forms: Patient Portal/API
== END 2025-01-30 23:35 | disposition home or self-care (01) ==
PROVIDERS: Emergency Provider Emergency Medicine; PCP Family Medicine
DX: S00.03XA Contusion of scalp, initial encounter (principal); W18.30XA Fall on same level, unspecified, initial encounter; Z79.01 Long term (current) use of anticoagulants
CPT/HCPCS: 70450; 72125; 99283; 99284

== ENCOUNTER → 2025-04-11 08:17 | Outpatient (CLI) | payer MEDICARE, SELFPAY ==
[2025-04-11 08:49] LABS: Hemoglobin A1C% w Est Avg Glu 6.5 % (4.0-6.0)
== END ==
PROVIDERS: PCP Family Medicine; Referring Provider Family Medicine; Visit Provider Family Medicine
DX: E11.9 Type 2 diabetes mellitus without complications (principal)
CPT/HCPCS: 36415; 83036

== ENCOUNTER → 2025-07-18 08:12 | Outpatient (CLI) | payer MEDICARE, SELFPAY ==
[2025-07-18 09:43] LABS: Blood Urea Nitrogen 20 mg/dL (9-20); Calcium 9.1 mg/dL (8.4-10.2); Carbon Dioxide 26 mmol/L (22-32); Chloride 104 mmol/L (98-107); Estimated Glomerular Filt Rate > 60 mL/min (>60); Glucose 190 mg/dL (70-99); HEMOLYSIS < 15 (0-50); Potassium 4.2 mmol/L (3.4-5.1); Sodium 139 mmol/L (137-145)
[2025-07-18 09:47] LABS: Hemoglobin A1C% w Est Avg Glu 6.7 % (4.0-6.0)
== END ==
PROVIDERS: Nurse Practitioner; PCP Family Medicine; Referring Provider Family Medicine; Visit Provider Family Medicine
DX: Z51.81 Encounter for therapeutic drug level monitoring (principal); E11.9 Type 2 diabetes mellitus without complications; I48.0 Paroxysmal atrial fibrillation; Z79.899 Other long term (current) drug therapy
CPT/HCPCS: 36415; 80048; 83036